=== PATIENT | male | born 1940 | race Caucasian/White ===

== ENCOUNTER 2017-11-21 12:46 | Outpatient (RCR) | payer MEDICARE | END 2018-02-03 | disposition home or self-care (01) | LOC: ONC 12:46 | PROVIDERS: ATTEND Radiology Radiation Oncology | DX: Z51.0 Encounter for antineoplastic radiation therapy (principal); C79.51 Secondary malignant neoplasm of bone; C22.8 Malignant neoplasm of liver, primary, unspecified as to type; B18.1 Chronic viral hepatitis B without delta-agent; K74.60 Unspecified cirrhosis of liver; Z79.899 Other long term (current) drug therapy | CPT/HCPCS: 77290; 77295; 77300; 77334; 77336; 77386; 77417; 77470; 99204 ==